=== PATIENT | female | born 1985 | race Caucasian/White ===

== ENCOUNTER 2017-03-26 12:07 | Emergency (ER) | payer BC ==
[2017-03-26 12:15] VITALS: BP 147/85
--- NOTE | 2017-03-26 12:44 | UC ---
Skin Complaint HPI - HPI Summary HPI Summary: ACTIVE WITH HIKING THIS SUMMER, LAST WEEK WAS STUNG BY BEES ON NECK AND TORSO. TWO DAYS AGO NOTICED WORSENING TENDER RED AREA BEHIND RIGHT KNEE. NO KNOWN TICK BITES. NO FEVER. NO TRAUMA. NO CALF PAIN. NO SHORTNESS OF BREATH. NO CHEST PAIN. - History of Current Complaint Chief Complaint: UCSkin Time Seen by Provider: 03/26/17 12:09 Stated Complaint: SKIN ISSUE Hx Obtained From: Patient Hx Last Menstrual Period: 02/22/17 Onset/Duration: Sudden Onset, Lasting Days, Still Present, Worse Since - THREE DAYS AGO Skin Exposure Onset/Duration: Days Ago Onset Severity: Mild Current Severity: Mild Location: Discrete Character: Pruritus, Redness, Painful Aggravating: Touch Associated Signs & Symptoms: Positive: Rash, Tenderness, Red Streaks. Negative : Fever, Chills Related History: Insect Bite/Sting, Possible Reaction to: Insect - Allergy/Home Medications Allergies/Adverse Reactions: Allergies Allergy/AdvReac Type Severity Reaction Status Date / Time Butalbital [From Fioricet] Allergy Hives Verified 11/20/14 07:24 Review of Systems Constitutional: Negative Skin: Rash Eyes: Negative ENT: Negative Respiratory: Negative Cardiovascular: Negative Gastrointestinal: Negative Genitourinary: Negative Motor: Negative Neurovascular: Negative Musculoskeletal: Negative Neurological: Negative Psychological: Negative All Other Systems Reviewed And Are Negative: Yes PMH/Surg Hx/FS Hx/Imm Hx Previously Healthy: Yes - Surgical History Surgical History: Yes Surgery Procedure, Year, and Place: appendectomy - Family History Known Family History: Negative: Blood Disorder - Social History Occupation: Employed Full-time Lives: With Family Alcohol Use: Weekly Substance Use Type: None Smoking Status (MU): Former Smoker Type: Cigarettes Amount Used/How Often: 1/2 ppd Length of Time of Smoking/Using Tobacco: 5 years Have You Smoked in the Last Year: No When Did the Patient Quit Smoking/Using Tobacco: 4.5 years ago Physical Exam Triage Information Reviewed: Yes Appearance: Well-Appearing, No Pain Distress, Well-Nourished Vital Signs: Initial Vital Signs Temp 97.8 F 03/26/17 12:13 Pulse 85 03/26/17 12:13 Resp 16 03/26/17 12:13 BP 147/85 03/26/17 12:13 Pulse Ox 100 03/26/17 12:13 Vital Signs Reviewed: Yes Eye Exam: Normal ENT Exam: Normal ENT: Positive: Normal ENT inspection, TMs normal Dental Exam: Normal Neck exam: Normal Respiratory Exam: Normal Respiratory: Positive: Chest non-tender, Lungs clear, Normal breath sounds, No respiratory distress Cardiovascular Exam: Normal Cardiovascular: Positive: RRR, No Murmur, Pulses Normal Abdominal Exam: Normal Musculoskeletal Exam: Normal Musculoskeletal: Positive: Strength Intact, ROM Intact Neurological Exam: Normal Psychological Exam: Normal Skin: Positive: rashes - RIGHT KNEE 5CM X 2CM ERRYTHEMATOUS MILDLY INDURATED TENDER AREA Course/Dx - Differential Diagnoses - Skin Complaint Differential Diagnoses: Cellulitis, Local Allergic Reaction, MRSA, Poison [place], Poison [place], Tick Born Illness, Tinea, Viral Exanthem - Diagnoses Provider Diagnoses: CELLULITIS RIGHT KNEE; SEVERAL HEALING BEE STINGS NECK AND TORSO Discharge - Discharge Plan Condition: Stable Disposition: HOME Prescriptions: DOXYcycline CAP(*) [DOXYcycline 100MG CAP(*)] 100 mg PO BID #20 cap Patient Education Materials: Cellulitis (ED), Insect Bite or Sting (ED) Referrals: [facility] [Outside] No Primary Care Phys,NOPCP [Primary Care Provider] - Additional Instructions: PRIMARY CARE: There are four major types of clinical preventive care: immunizations, screening , behavioral counseling (sometimes referred to as lifestyle changes), and chemoprevention. All four apply throughout the life span. It is important to establish and to have access to a Primary Care Physician, not only for follow- up regrding acute and chronic problems, but also for preventative care. Images Front/Back of Body, Lg ([place]): 1 - RIGHT KNEE 5CM X 2CM ERRYTHEMATOUS MILDLY INDURATED TENDER AREA
== END 2017-03-26 12:38 | disposition home or self-care (01) ==
LOC: UCEAST 12:07
DX: L03.115 Cellulitis of right lower limb (principal); T63.441A Toxic effect of venom of bees, accidental (unintentional), initial encounter; Z87.891 Personal history of nicotine dependence
CPT/HCPCS: 99212; G0463

== ENCOUNTER 2018-03-17 17:42 | Emergency (ER) | payer BC ==
[2018-03-17 18:11] VITALS: BP 160/97
--- NOTE | 2018-03-17 18:27 | UC ---
Skin Complaint HPI - HPI Summary HPI Summary: This patient is a 33 year old F presenting to [facility] with a chief complaint of painful pruritic rash to bilateral legs for the past two weeks. Pain is 2/10 in severity. Reports swelling to the lower legs intermittently. She has been taking Benadryl PO without significant improvement. She states for the past couple weeks the rash has improved after getting out of heat, but worsens again when she goes outside for work. She denies fever. PMHx of cellulitis and shingles. - History of Current Complaint Chief Complaint: UCRash Time Seen by Provider: 03/17/18 18:21 Stated Complaint: RASH Hx Obtained From: Patient Hx Last Menstrual Period: 5 DAYS AGO Onset/Duration: Lasting Weeks, Still Present Skin Exposure Onset/Duration: Weeks Ago Timing: Constant Pain Intensity: 2 Pain Scale Used: 0-10 Numeric Location: Other - bilateral legs Character: Exposure to Heat Intermittent, Pruritus, Pain Alleviating Factor(s): OTC Creams/Salves Associated Signs & Symptoms: Positive: Negative. Negative: Fever Related History: Possible Reaction to: Environmental Exposure - Allergy/Home Medications Allergies/Adverse Reactions: Allergies Allergy/AdvReac Type Severity Reaction Status Date / Time butalbital Allergy Severe Hives Verified 03/17/18 18:11 Home Medications: Home Medications Cholecalciferol CAP/TAB(NF) [Vitamin D3 CAP/TAB (NF)] 03/17/18 [History] Cyanocobalamin TAB* [Vitamin B12 TAB*] 03/17/18 [History Confirmed 03/17/18] Otc Allergy Med* 03/17/18 [History] Review of Systems Constitutional: Negative Skin: Rash Musculoskeletal: Edema All Other Systems Reviewed And Are Negative: Yes PMH/Surg Hx/FS Hx/Imm Hx Previously Healthy: Yes - shingles, cellulitis - Surgical History Surgical History: Yes Surgery Procedure, Year, and Place: appendectomy - Family History Known Family History: Negative: Blood Disorder - Social History Alcohol Use: Weekly Substance Use Type: None Smoking Status (MU): Former Smoker Type: Cigarettes Amount Used/How Often: 1/2 ppd Length of Time of Smoking/Using Tobacco: 5 years Have You Smoked in the Last Year: No When Did the Patient Quit Smoking/Using Tobacco: 4.5 years ago Physical Exam - Summary Physical Exam Summary: General: well-appearing, no pain distress Skin: warm, color reflects adequate perfusion, dry Diffuse erythematous rash of bilateral lower legs that braches, not hot to touch, no drainage Head: normal Eyes: EOMI, TAY ENT: normal Neck: supple, nontender Respiratory: CTA, breath sounds present Cardiovascular: RRR Abdomen: soft, nontender Bowel: present Musculoskeletal: normal, strength/ROM intact Neurological: sensory/motor intact, A&O x3 Psychological: affect/mood appropriate Triage Information Reviewed: Yes Vital Signs: Initial Vital Signs Temp 98.4 F 03/17/18 18:06 Pulse 81 03/17/18 18:06 Resp 16 03/17/18 18:06 BP 160/97 03/17/18 18:06 Pulse Ox 100 03/17/18 18:06 Vital Signs Reviewed: Yes Course/Dx - Course Course Of Treatment: PROBABLE CONTACT DEMATITIS. F/U PMD; RECHECK SOONER IF WORSE. - Diagnoses Provider Diagnoses: RASH BOTH LEGS Discharge - Sign-Out/Discharge Documenting (check all that apply): Patient Departure - Discharge Plan Condition: Stable Disposition: HOME Prescriptions: Cephalexin CAP* [Keflex CAP*] 500 mg PO TID #29 cap predniSONE TAB* [Deltasone 20 MG TAB*] 40 mg PO DAILY #8 tab Patient Education Materials: Acute Rash (ED) Referrals: [facility] [place] [facility] [Outside] Nathaniel Pedraza MD [Medical Doctor] - Additional Instructions: FOLLOW UP WITH YOUR PRIMARY CARE DOCTOR OR DERMATOLOGY IF NOT COMPLETELY IMPROVED. GET RECHECKED FOR ANY WORSENING OF YOUR CONDITION OR QUESTIONS OR CONCERNS. - Billing Disposition and Condition Condition: STABLE Disposition: Home
[2018-03-17] MEDS ORDERED: predniSONE TAB* 20 MG PO ONE (18:40)
[2018-03-17] MEDS ORDERED: Cephalexin CAP* 500 MG PO ONE (18:40)
== END 2018-03-17 19:00 | disposition home or self-care (01) ==
LOC: UCEAST 17:42
DX: R21 Rash and other nonspecific skin eruption (principal); R60.0 Localized edema; Z88.8 Allergy status to other drugs, medicaments and biological substances; Z87.891 Personal history of nicotine dependence
CPT/HCPCS: 99212; A9270-GY; G0463; J7512